=== PATIENT | female | born 1985 | race Hispanic/Latino ===

== ENCOUNTER 2017-07-19 09:14 | Outpatient (CLI) | payer OTHER ==
--- NOTE | 2017-07-19 11:46 | ULT ---
BIOPHYSICAL PROFILE: History: Gestational diabetes in third trimester. Technique: Multiplanar grayscale and color doppler images were obtained in a transabdominal ul trasound. Biophysical profile was calculated. FINDINGS: There is a single live intrauterine with heart rate of 150 beats/min. OLIVER is 16.5 cm, whic h is normal. An OLIVER was calculated at 8/8, which is normal. IMPRESSION: Normal biophysical profile. POS: [facility]
== END 2017-07-19 09:15 | disposition home or self-care (01) ==
LOC: ULT 09:14
PROVIDERS: ATTEND Student in an Organized Health Care Education/Training Program
DX: O24.415 Gestational diabetes mellitus in pregnancy, controlled by oral hypoglycemic drugs (principal)
CPT/HCPCS: 76819

== ENCOUNTER 2017-07-24 12:02 | Outpatient (CLI) | payer OTHER ==
--- NOTE | 2017-07-24 14:18 | ULT ---
ULTRASOUND BIOPHYSICAL PROFILE: HISTORY: Gestational diabetes in third trimester. COMPARISON: Biophysical profile 07/19/17. FINDINGS: A single viable intrauterine . The heart rate is documented at 128 b.p.m. The amniotic fluid index is calculated at 11.8 cm. position is vertex and placenta is posterior. IMPRESSION: 1. Normal biophysical profile score of 8/8. 2. Amniotic fluid index of 11.8 cm. POS: [facility]
== END 2017-07-24 12:03 | disposition home or self-care (01) ==
LOC: ULT 12:02
PROVIDERS: ATTEND Obstetrics & Gynecology
DX: O24.415 Gestational diabetes mellitus in pregnancy, controlled by oral hypoglycemic drugs (principal)
CPT/HCPCS: 76805; 76819